=== PATIENT | female | born 1980 | race Caucasian/White ===

== ENCOUNTER 2017-02-12 12:06 | Inpatient (IN) | payer MEDICAID ==
[~2017-02-12] VITALS: Ht 149.9 cm; Wt 67.2 kg
[2017-02-12 12:15] VITALS: BP 136/85; PULSE 94; RESP 16; TEMP 98.5; O2SAT 98
[2017-02-12] MEDS ORDERED: PHEN30CA PO (15:21)
[2017-02-12] MEDS ORDERED: PHEN15CA PO (15:21)
[2017-02-12] MEDS ORDERED: MULT-65 PO (15:22)
[2017-02-12] MEDS ORDERED: ACETAMINOPHEN 325 MG TAB PO PRN (16:00)
[2017-02-12] MEDS ORDERED: MAGNESIUM HYDROXIDE SUSP 30 ML CUP PO PRN (16:00)
[2017-02-12] MEDS ORDERED: ALUMINUM/MAGNESIUM/SIMETH 30 ML CUP PO PRN (16:00)
[2017-02-12 19:37] VITALS: BP 117/62; PULSE 76; RESP 16; TEMP 98; O2SAT 99
[2017-02-12] MEDS ORDERED: REMOVE OLD NICOTINE PATCH T-DERMAL SCH (21:00)
[2017-02-13 05:41] VITALS: BP 133/63; PULSE 65; RESP 18; TEMP 98.4; O2SAT 96
[2017-02-13 07:55] LABS: ANION GAP 8 MEQ/L (5-15); BICARBONATE 25.5 MEQ/L (21.0-32.0); BLOOD UREA NITROGEN 12 MG/DL (7-18); CHLORIDE 108 MEQ/L (98-107); GLOMERULAR FILTRATION RATE 92 ML/MIN (>89); POTASSIUM 4.3 MEQ/L (3.5-5.1); SODIUM (NA) 141 MEQ/L (136-145)
[2017-02-13 07:57] LABS: HDL CHOLESTEROL 34.2 MG/DL (40.0-60.0); LDL CHOLESTEROL 127 MG/DL (0-99)
[2017-02-13] MEDS ORDERED: NICOTINE 21 MG/24 HR PATCH T-DERMAL SCH (09:00)
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
[2017-02-13 16:56] LABS: HEMOGLOBIN A1a 1.2 %; HEMOGLOBIN A1b 0.8 %; HEMOGLOBIN F 1.9 %; HEMOGLOBIN LA1C 1.6 %; HEMOGLOBIN P3 3.4 %
== END 2017-02-13 13:15 | disposition home or self-care (01) | DRG 882 ==
LOC: H270 12:07
PROVIDERS: ADMIT Psychiatry & Neurology Psychiatry; ATTEND Psychiatry & Neurology Psychiatry
DX: F43.25 Adjustment disorder with mixed disturbance of emotions and conduct (principal); F13.10 Sedative, hypnotic or anxiolytic abuse, uncomplicated; Z81.1 Family history of alcohol abuse and dependence; Z81.3 Family history of other psychoactive substance abuse and dependence; Z87.891 Personal history of nicotine dependence
CPT/HCPCS: 80048; 80061; 83036